=== PATIENT | female | born 1970 | race Asian ===

== ENCOUNTER → 2024-02-23 10:55 | Outpatient (REF) | payer OTHER, SELFPAY | LOC: WDC 10:55 | PROVIDERS: ATTENDING PHYSICIAN Obstetrics & Gynecology; FAMILY PHYSICIAN Internal Medicine | DX: Z12.31 Encounter for screening mammogram for malignant neoplasm of breast (principal) | CPT/HCPCS: 77063; 77067 ==

== ENCOUNTER → 2025-02-24 11:50 | Outpatient (REF) | payer OTHER, SELFPAY | LOC: WDC 11:50 | PROVIDERS: ATTENDING PHYSICIAN Internal Medicine | DX: Z12.31 Encounter for screening mammogram for malignant neoplasm of breast (principal) | CPT/HCPCS: 77063; 77067 ==

== ENCOUNTER → 2025-04-28 09:06 | Outpatient (REF) | payer OTHER, SELFPAY | LOC: WDC 09:06 | PROVIDERS: ATTENDING PHYSICIAN Obstetrics & Gynecology; FAMILY PHYSICIAN Internal Medicine | DX: N63.23 Unspecified lump in the left breast, lower outer quadrant (principal) | CPT/HCPCS: 76642 ==